=== PATIENT | female | born 1955 | race Caucasian/White ===

== ENCOUNTER 2017-05-31 11:20 | Emergency (ER) | payer OTHER ==
[2017-05-31] MEDS: ACETAMINOPHEN 325 MG TAB PO (15:50)
== END 2017-05-31 17:31 | disposition home or self-care (01) ==
LOC: FTE 17:31
DX: J06.9 Acute upper respiratory infection, unspecified (principal); I10 Essential (primary) hypertension; Z79.82 Long term (current) use of aspirin; Z79.84 Long term (current) use of oral hypoglycemic drugs
CPT/HCPCS: 71045; 99284-25